=== PATIENT | female | born 1995 | race Caucasian/White ===

== ENCOUNTER 2017-04-24 00:51 | Emergency (ER) | payer OTHER ==
[~2017-04-24] VITALS: Ht 157.5 cm; Wt 106.1 kg
[~2017-04-24 00:51] MED LIST: NOHOMEMEDS
[2017-04-24 02:17] LABS: HEMATOCRIT 40.7 % (36.0-46.0); MCH 25.1 PG (29.0-34.0); MCHC 31.9 G/DL (30.0-36.0); MCV 78.6 FL (83-99); MEAN PLAT.VOLUME 9.7 uM^3 (9.5-12.4); PLATELET COUNT 302 K/uL (156-360); RBC DIS.WIDTH-CV 14.6 % (11.8-14.6); RBC DIS.WIDTH-SD 41.4 % (39-53); RED BLOOD COUNT 5.18 M/uL (3.80-5.20); WHITE BLOOD COUNT 10.4 K/uL (4.1-10.2)
[2017-04-24 02:29] LABS: CHLORIDE 106 mEq/L (99-109); POTASSIUM 3.9 mEq/L (3.7-5.4); SODIUM 141 mEq/L (136-147)
[2017-04-24 02:31] LABS: GLUCOSE 112 mg/dL (70-99)
[2017-04-24 02:33] LABS: ANION GAP 12 MEQ/L (2-14)
[2017-04-24 02:35] LABS: GFR ESTIMATE (CALCULATED) > 59 mL/min/
[2017-04-24 02:36] LABS: UREA NITROGEN (BUN) 10 mg/dL (9-23)
[2017-04-24 02:40] LABS: TROP-I INTERPRETATION NEGATIVE; TROPONIN-I < 0.01 ng/mL (0.0-0.30)
[2017-04-24 02:51] LABS: QUANTITATIVE HCG < 4.0 MIU/ML
[2017-04-24 03:33] LABS: ADD MIUA? YES; BILIRUBIN NEGATIVE; BLOOD LARGE; COLOR YELLOW ((YELLOW)); GLUCOSE (STRIP) NEGATIVE; KETONES NEGATIVE; LEUKOCYTES MODERATE; NITRITE NEGATIVE; PROTEIN (STRIP) 30; SPECIFIC GRAVITY 1.011 (1.000-1.030); UROBILINOGEN 0.2 MG/DL (0.2-1.0)
[2017-04-24] MEDS ORDERED: ATIVAN0.5 MG PO (04:14)
[2017-04-24 04:21] LABS: BACTERIA 3+ /HPF; EPITHELIAL CELLS 2+ /HPF; MUCUS 2+ /LPF; RED BLOOD CELLS NONE SEEN /HPF (0-5); UCUL ADDED? YES
[2017-04-24 04:22] LABS: AMORPHOUS URATES CRYSTALS 2+; CRYSTALS PRESENT
[2017-04-24 04:24] VITALS: BP 130/85
== END 2017-04-24 04:34 | disposition home or self-care (01) ==
LOC: EME 00:51
PROVIDERS: Emergency Medicine
DX: R07.89 Other chest pain (principal); F41.9 Anxiety disorder, unspecified; Z87.891 Personal history of nicotine dependence
CPT/HCPCS: 71020; 80048; 81003; 84484; 84702; 85027; 87086; 93005; 99281; 99285

== ENCOUNTER 2017-09-11 13:35 | Emergency (ER) | payer OTHER ==
[~2017-09-11] VITALS: Ht 162.6 cm; Wt 104.7 kg
[~2017-09-11 13:35] MED LIST changes: +ATIVAN0.5 MG PO
[2017-09-11 15:37] VITALS: BP 118/66
== END 2017-09-11 15:36 | disposition home or self-care (01) ==
LOC: EME 13:35
DX: S86.911A Strain of unspecified muscle(s) and tendon(s) at lower leg level, right leg, initial encounter (principal); X58.XXXA Exposure to other specified factors, initial encounter; M54.9 Dorsalgia, unspecified; Z87.891 Personal history of nicotine dependence
CPT/HCPCS: 93971; 99281; 99284

== ENCOUNTER 2017-11-04 21:48 | Emergency (ER) | payer OTHER ==
[~2017-11-04] VITALS: Ht 162.6 cm; Wt 106.0 kg
[2017-11-05] MEDS ORDERED: PREDNISONE10 MG PO (02:54)
[2017-11-05 02:58] VITALS: BP 122/80
== END 2017-11-05 03:01 | disposition home or self-care (01) ==
LOC: EME 21:48
DX: M54.16 Radiculopathy, lumbar region (principal); F41.9 Anxiety disorder, unspecified; Z91.040 Latex allergy status; Z88.1 Allergy status to other antibiotic agents
CPT/HCPCS: 72100; 93971; 99281; 99285; J1885

== ENCOUNTER 2018-05-21 22:34 | Emergency (ER) | payer OTHER ==
[~2018-05-21] VITALS: Ht 162.6 cm; Wt 105.5 kg
[~2018-05-21 22:34] MED LIST changes: +PREDNISONE10 MG PO
[2018-05-21 22:42] VITALS: BP 123/78
[2018-05-22] MEDS ORDERED: ZOFRAN ODT4 MG PO (02:17)
== END 2018-05-22 02:30 | disposition home or self-care (01) ==
LOC: EME 22:34
DX: S09.90XA Unspecified injury of head, initial encounter (principal); W21.4XXA Striking against diving board, initial encounter; Y93.11 Activity, swimming; Y92.34 Swimming pool (public) as the place of occurrence of the external cause; Z91.040 Latex allergy status; Z88.1 Allergy status to other antibiotic agents; Z91.09 Other allergy status, other than to drugs and biological substances
CPT/HCPCS: 70450; 72125; 99281; 99283